=== PATIENT | male | born 1985 | race Caucasian/White ===

== ENCOUNTER 2025-08-22 11:30 | Outpatient (RCR) | payer MEDICAID, SELFPAY ==
--- NOTE | 2025-08-04 16:14 | PTNOTE_ITS ---
PT OP Initial Eval Patient Information Outpatient Physical Therapy Treatment Date: 08/04/25 Visit Reasons: Cerebrovascular accident Medical Diagnosis: I63.449; R26.89 Treatment Dx #1: BLE Weakness Treatment Dx #2: Balance Deficits Start of Care: 08/04/25 Date of Onset: Sep 2024 Smoking Status Smoking Status: Never smoker Initial Assessment Subjective: Pt is a 39 y/o male reports of stroke in Sep 2024 where it affected his strength, balance, and coordination. Pt now has difficulty with prolonged walking, balance, standing, recreational activities, and performing ADLs. Objective: BLE AROM: all motions are WFL BLE MMTs: grossly 4-/5 Sharpen Romber sec Sit-Stand Test: 10 reps Assessment: Pt demonstrate BLE weakness with balance deficits leading to difficulty with ADLs. Pt will benefit from physical therapy to work on strength, balance, and overall mobility Short Term and Group Home Goals 1) Increase BLE MMTs grossly to 4/5 in 6 wks to be able to perform chores 2) Increase sharpen romberg to 30 sec in 6 wks to be able to improve overall balance 3) Increase sit-stand reps to 15 in 6 wks to improve overall BLE endurance with ADLs 4) Indep with HEP Treatment Plan 1) Manual Therapy 2) Therapeutic Activities 3) Therapeutic Exercises 4) Balance Training 5) Gait Training Frequency and Duration: 2 x wk for 6 wks Certification Dates: 08/04/25 to 11/04/25 Procedure Charges OP PT Eval Mod Complex 30 minutes: Yes
--- NOTE | 2025-08-15 10:25 | PT.ODAYNRPT ---
PT Outpatient Daily Note OP Daily Note Outpatient Physical Therapy Treatment Date: 08/15/25 Visit Reasons: Cerebrovascular accident Subjective: Pt's doing okay. Pt mentioned his balance and walking is still not up to par. Objective: Please see flow chart for list of ther ex performed Assessment: frequent cues to keep eyes up with balance exercise to challenge feet proprioception. Pt had difficulty maintaining balance with tandem balance, however, able to complete recommended reps Plan: Continue with PT Length of Time (minutes) of Treatment: 30 Minutes Procedure Charges Therapeutic Exercise 30 minutes: Yes
--- NOTE | 2025-08-17 10:36 | PTNOTE_ITS ---
PT Outpatient Daily Note OP Daily Note Outpatient Physical Therapy Treatment Date: 08/17/25 Visit Reasons: Cerebrovascular accident Subjective: No new complaints or concerns. Objective: Please see flow sheet for ther ex list. Assessment: Pt instructed on tandem stance exercise, pt requires occasional CYANIDE CASE HARDENER to maintain standing balance. Plan: Continue with poC. Length of Time (minutes) of Treatment: 30 Minutes SUPERVISOR ENGRAVING Service Modifier Method I: Divide the number of min of care provided by the SUPERVISOR ENGRAVING/DATA PROCESSING CLERK by the total min of care provided then multiply by 100. If greater than 11 percent modifier is required. Method II: Divide the total time of care provided to patient by 10 (round to the nearest whole number) and add 1 min. to set the minimum time requirement. If treatment total was 60 min., then 10% of 6 min PT CQ modifier applied: CQ Modifier applied Procedure Charges Therapeutic Exercise 30 minutes: Yes
--- NOTE | 2025-08-22 12:54 | PT.ODAYNRPT ---
PT Outpatient Daily Note OP Daily Note Outpatient Physical Therapy Treatment Date: 08/22/25 Visit Reasons: Cerebrovascular accident Subjective: No new complaints or concerns. Objective: Please see flow sheet for ther ex list. Assessment: Added balance interventions, pt unsteady at times but uses B UE to maintain standing balance. Plan: Continue with poC. Length of Time (minutes) of Treatment: 30 Minutes Procedure Charges Therapeutic Exercise 30 minutes: Yes
== END 2025-08-27 23:59 | disposition home or self-care (01) ==
LOC: CPTX 11:30
PROVIDERS: PCP Family Medicine; Referring Provider Family Medicine; Visit Provider Family Medicine
DX: I69.398 Other sequelae of cerebral infarction (principal); R26.89 Other abnormalities of gait and mobility; I69.354 Hemiplegia and hemiparesis following cerebral infarction affecting left non-dominant side; I69.351 Hemiplegia and hemiparesis following cerebral infarction affecting right dominant side
CPT/HCPCS: 97110; 97162

== ENCOUNTER 2025-09-27 10:30 | Outpatient (RCR) | payer MEDICAID, SELFPAY ==
--- NOTE | 2025-08-29 12:42 | PTNOTE_ITS ---
PT Outpatient Daily Note OP Daily Note Outpatient Physical Therapy Treatment Date: 08/29/25 Visit Reasons: cva Subjective: No new complaints or concerns. Objective: Please see flow sheet for ther ex list. Assessment: Progressing interventions, added balance beam exercise pt completed with moderate sway but able to recover balance with ENGINEER AND GEOLOGIST. Plan: Continue with poC. Length of Time (minutes) of Treatment: 30 Minutes Procedure Charges Therapeutic Exercise 30 minutes: Yes
--- NOTE | 2025-08-31 09:09 | PT.ODAYNRPT ---
PT Outpatient Daily Note OP Daily Note Outpatient Physical Therapy Treatment Date: 08/31/25 Visit Reasons: cva Subjective: Pt's balance and walking is much better. Pt mentioned he wants to return back to work. Pt has not fallen lately. Objective: Please see flow chart for list of ther ex performed Assessment: progressing dynamic balance is better, however, still exhibit difficulty performing exercises on airex foam due to coordination and unsteadiness Plan: Continue with PT Length of Time (minutes) of Treatment: 30 Minutes Procedure Charges Therapeutic Exercise 30 minutes: Yes
--- NOTE | 2025-09-05 14:59 | PT.ODAYNRPT ---
PT Outpatient Daily Note OP Daily Note Outpatient Physical Therapy Treatment Date: 09/05/25 Visit Reasons: cva Subjective: Pt doesn't know if he needs help with stairs or steps. Overall Pt is doing really well Objective: Please see flow chart for list of ther ex performed Assessment: one LOB with lateral step up going up to the right side. Pt require mild physical support from therapist. Pt is unable to perform left lateral step up due to fear of falling and modified to partial. Plan: Continue with PT Length of Time (minutes) of Treatment: 30 Minutes Procedure Charges Therapeutic Exercise 30 minutes: Yes
--- NOTE | 2025-09-07 13:49 | PTNOTE_ITS ---
PT Outpatient Daily Note OP Daily Note Outpatient Physical Therapy Treatment Date: 09/07/25 Visit Reasons: cva Subjective: Pt reports feeling progress with balance and strength. Objective: Please see flow sheet for ther ex list. Assessment: Pt requires BACTERIOLOGY RESEARCH ASSISTANT for squats exercise. Plan: Continue with poC. Length of Time (minutes) of Treatment: 30 Minutes Procedure Charges Therapeutic Exercise 30 minutes: Yes
--- NOTE | 2025-09-13 12:00 | PT.ODAYNRPT ---
PT Outpatient Daily Note OP Daily Note Outpatient Physical Therapy Treatment Date: 09/13/25 Visit Reasons: cva Subjective: Pt's wants to know if he can drive. His PCP appt was moved to a further date. Overall balance is improving with walking, uneven surfaces, and steps. Objective: Please see flow chart for list of ther ex performed Assessment: improved coordination noted with step up and lateral step up exercises. Pt had difficulty maintain static balance on airex foam Plan: Continue with PT Length of Time (minutes) of Treatment: 30 Minutes Procedure Charges Therapeutic Exercise 30 minutes: Yes
--- NOTE | 2025-09-19 13:54 | PT.ODAYNRPT ---
PT Outpatient Daily Note OP Daily Note Outpatient Physical Therapy Treatment Date: 09/19/25 Visit Reasons: cva Subjective: Pt wants to continue to work on balance. Objective: Sharpen Romber sec Sit-Stand Test: 11 reps Assessment: Pt is progressing with static balance and BLE endurance based improvement with sit-stand and sharpen romberg test. Pt still has difficulty with balancing on airex foam and will continue to benefit from the challenge to improve overall balance Plan: Continue with PT Length of Time (minutes) of Treatment: 30 Minutes Procedure Charges Therapeutic Exercise 30 minutes: Yes
--- NOTE | 2025-09-25 11:35 | PT.ODAYNRPT ---
PT Outpatient Daily Note OP Daily Note Outpatient Physical Therapy Treatment Date: 09/25/25 Visit Reasons: cva Subjective: Pt wants to continue to work on balance. Stairs and negotiate steps are getting easier. Objective: Please see flow chart for list of ther ex performed Assessment: one LOB with during sit to stand exercise which did not require assistance from therapist to regain balance. Pt still exhibit balance deficits with balance exercises due to coordination and depth perception limitation Plan: Continue with PT Length of Time (minutes) of Treatment: 30 Minutes Procedure Charges Therapeutic Exercise 30 minutes: Yes
--- NOTE | 2025-09-27 11:13 | PT.ODS1RPT ---
PT OP Progress/Discharge Note Date of Service: 09/27/25 Progress Note/DC Note Progress Note/Discharge Note: Progress Note Patient Information Visit Reasons: cva Medical Diagnosis: I63.449; R26.89 Treatment Dx #1: BLE Weakness Treatment Dx #2: Balance Deficits Service Continue Service or Discharge: Continue Service Certification Date Certification Dates: 09/27/25 to 12/26/25 Status Subjective: Pt mentioned his balance, walking, endurance is getting better. Pt still has limitation with uneven surfaces, stairs, deep squatting activities, prolonged walking, and performing recreational activities. Pt will like to continue physical therapy to work on balance, strength, and overall endurance. Objective: BLE AROM: all motions are WFL BLE MMTs: grossly 4/5 Sharpen Romber sec Sit-Stand Test: 11 reps Assessment: Pt is improving with strength, balance, and overall endurance allowing him to start ADLs, ambulate, and perform chores with less limitation. Pt has not met set goals and will continue to benefit from additional physical therapy; thank you for your referrals. Plan: Continue with PT/POC and add 12 sessions (2 x wk for 6 wks) Procedure Charges Therapeutic Exercise 30 minutes: Yes
== END 2025-09-27 23:59 | disposition home or self-care (01) ==
LOC: CPTX 10:30
PROVIDERS: PCP Family Medicine; Referring Provider Family Medicine; Visit Provider Family Medicine
DX: I69.359 Hemiplegia and hemiparesis following cerebral infarction affecting unspecified side (principal); I69.398 Other sequelae of cerebral infarction; R26.89 Other abnormalities of gait and mobility; R26.2 Difficulty in walking, not elsewhere classified
CPT/HCPCS: 97110